=== PATIENT | female | born 1980 | race African-American/Black ===

== ENCOUNTER 2021-03-01 10:07 | Outpatient (CLI) | payer BC, SELFPAY ==
--- NOTE | ~2021-03-01 | XR_ITS ---
EXAMINATION: XR barium swallow modified DATE: 03/01/2021 10:49 INDICATION: Dysphagia TECHNIQUE: Modified barium esophagram was performed by myself to administered fluoroscopy, in conjun ction with speech pathologist who administered barium in varying consistencies as per speech patholog ist documentation. This was recorded on tape. A single fluoroscopic spot image was recorded. The DAP for this procedure was 1.319 Gycm2. Fluoroscopy exposure time was 2.0 minutes. FINDINGS: Oral stage: Adequate function. Pharyngeal phase: Adequate function. Laryngeal penetration: None. Aspiration: None. Laryngeal sensitivity: Present. IMPRESSION: Normal modified barium swallow. Please refer to speech pathologist findings and specific feeding recommendations. Reviewed, dictated and finalized at location A. RETE ENGINEERING TECHNICIAN
--- NOTE | 2021-03-01 11:09 | STOPEVAL ---
MODIFIED BARIUM SWALLOW EVALUATION: Thank you for referring Vanna Guzman to [facility].? 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 Prior Level of Function Prior Swallow Level Prior Intake Method Oral Prior Diet Regular (Level 7 Diet) Prior Liquid Consistency Thin (Level 0 Diet) Pain Assessment Timing of Pain Assessment Timing of Pain Assessment Assessment Self Report Self Report Pain Level 0 Pain Score Pain Score 0: Self Report Modified Barium Swallow Evaluation Recent Swallowing History Reports Dysphagia Yes: food and liquid comes back up and out nose at times Duration of Dysphagia several years Other Related History Mast cell activation syndrome History of Pneumonia No Reported Difficult Consistencies Unable to Identify Intake Method Prior to Swallow Oral Evaluation Diet Prior to Swallow Evaluation Regular, Level 7 Liquid Consistency Prior to Swallow Thin (0) Evaluation Consistency Solid Consistency Method of Presentation Spoon Oral Preparatory Symptoms Within Functional Limits Oral Phase Symptoms Within Functional Limits Pharyngeal Phase Symptoms Within Functional Limits Severity of Vallecular Residue None - 0% No Residue Severity of Pyriform Sinus Residue None - 0% No Residue 8 Point Laryngeal Penetration-Aspiration Material Does Not Enter Airway Scale Cervical/Esophageal Symptoms Within Functional Limits Pureed Consistency Method of Presentation Spoon Oral Preparatory Symptoms Within Functional Limits Oral Phase Symptoms Within Functional Limits Pharyngeal Phase Symptoms Within Functional Limits Severity of Vallecular Residue None - 0% No Residue Severity of Pyriform Sinus Residue None - 0% No Residue 8 Point Laryngeal Penetration-Aspiration Material Does Not Enter Airway Scale Cervical/Esophageal Symptoms Within Functional Limits Thin Uncontrolled 2 Method of Presentation Straw Oral Preparatory Symptoms Within Functional Limits Oral Phase Symptoms Within Functional Limits Pharyngeal Phase Symptoms Within Functional Limits Severity of Vallecular Residue None - 0% No Residue Severity of Pyriform Sinus Residue None - 0% No Residue 8 Point Laryngeal Penetration-Aspiration Material Does Not Enter Airway Scale Cervical/Esophageal Symptoms Within Functional Limits Thin Uncontrolled 1 Method of Presentation Cup Oral Preparatory Symptoms Within Functional Limits Oral Phase Symptoms Within Functional Limits Pharyngeal Phase Symptoms
== END 2021-03-01 10:08 | disposition home or self-care (01) ==
PROVIDERS: Visit Provider Nurse Practitioner Family
DX: R13.10 Dysphagia, unspecified (principal)
CPT/HCPCS: 92611

== ENCOUNTER 2021-07-24 19:19 | Emergency (ER) | payer BC, SELFPAY ==
[2021-07-24 19:33] VITALS: BP 154/104; PULSE 76; RESP 16; O2SAT 99
--- NOTE | 2021-07-24 19:43 | ED.WOUNDLAC ---
HPI - Wound/Laceration General Chief Complaint: Wound/Laceration Stated Complaint: Left thumb laceration Time Seen by Provider: 07/24/21 19:44 Source: patient Mode of arrival: ambulatory Limitations: no limitations History of Present Illness HPI narrative: 40-year-old female presented for complaint of laceration to the left thumb approximately 2 hours prior to arrival. She states she cut it on a can and it did not stop bleeding until she arrived. She cleaned it and applied pressure. Denies numbness, tingling or weakness to the fingers. Denies decreased range of motion to the finger. Related Data Home Medications Medication Instructions Recorded Confirmed No Home Medications 07/24/21 07/24/21 Review of Systems Review of Systems: CONSTITUTIONAL: Denies body aches, fever, chills, or sweats. EYES: Denies visual changes, redness, or discharge. ENT: Denies rhinorrhea, congestion, sore throat, or otalgia. CARDIOVASCULAR: Denies chest pain, palpitations, or edema. RESPIRATORY: Denies cough or dyspnea. GASTROINTESTINAL: Denies abdominal pain, nausea, vomiting, or diarrhea. GENITOURINARY: Denies dysuria or hematuria. SKIN: thumb lac MUSCULOSKELETAL: Denies back pain, joint pain, or myalgia. NEUROLOGIC: Denies headache, numbness, tingling, or weakness. PSYCH: Denies depression or anxiety. PMFSH Comments At time of signature, I have reviewed and agree with nursing past medical, surgical, social and family history unless otherwise noted. Please see nursing chart for further information. There is no relevant family history pertinent to the presenting complaint Exam Narrative: GENERAL: Well-appearing HEAD: Normocephalic, atraumatic. EYES: PERRLA, conjunctivae clear, and EOMI. ENT: Mucous membranes moist. Oropharynx without edema, erythema or lesions. NECK: Supple. No lymphadenopathy CHEST: Clear to auscultation. No respiratory distress. HEART: Regular rate and rhythm. SKIN: Warm, dry. 1cm linear laceration to left thumb pad, no active bleeding, edges approximated NEURO: Alert and oriented x3. PSYCH: Normal mood and affect Course Course Emergency Course: Patient is aware of diagnosis, understands and agrees to treatment plan. Anticipatory guidance given. Patient agrees to follow-up as directed and is aware of reasons to seek care at the emergency department. Portions of this record may have been created with voice recognition software Level of Care: Express Care Visit Vital Signs Vital signs: Vital Signs Pulse Rate 76 07/24/21 19:33 Respiratory Rate 16 07/24/21 19:33 Blood Pressure 154/104 H 07/24/21 19:33 Pulse Oximetry 99 07/24/21 19:33 Pulse Rate 76 07/24/21 19:33 Respiratory Rate 16 07/24/21 19:33 Blood Pressure 154/104 H 07/24/21 19:33 Pulse Oximetry 99 07/24/21 19:33 Reviewed Procedures Laceration Laceration 1: Date: 07/24/21 Site: hand (left thumb) Side (If applicable): left Size (cm): 1 Description: linear Depth: simple, single layer ====== Skin Level ====== Skin layer closed with: steri strips ====== Subcutaneous Layer ====== ====== Muscle Layer ====== ====== Tendon Layer ====== Dressing: wound cleansed and steri strips applied MDM - Wound/Laceration MDM Narrative Medical decision making narrative: Pt had tetanus 7 years ago. She is advised to contact PCP given her medical history if they would like it updated. She is advised on wound care and steri strips. Differential Diagnosis Differential diagnosis: Likely laceration, abrasion and avulsion of skin Discharge Plan Discharge Clinical Impression: Laceration Patient Disposition: Home, Self-Care Condition: Stable Instructions: Antibiotic Form, Finger Laceration (ED), Steristrips (ED) Additional Instructions: Keep the area clean and dry - cleanse with warm water and mild soap and allow to fully dry. Discuss with PCP the ne
== END 2021-07-24 20:09 | disposition home or self-care (01) ==
PROVIDERS: Emergency Provider Nurse Practitioner Family
DX: S61.012A Laceration without foreign body of left thumb without damage to nail, initial encounter (principal); W26.8XXA Contact with other sharp object(s), not elsewhere classified, initial encounter; D89.40 Mast cell activation, unspecified
CPT/HCPCS: 99212; G0463

== ENCOUNTER 2022-02-06 17:07 | Emergency (ER) | payer BC, SELFPAY ==
[2022-02-06 17:19] VITALS: BP 150/88; PULSE 74; RESP 16; TEMP 37; O2SAT 100
--- NOTE | 2022-02-06 18:05 | ED.WOUNDLAC ---
HPI - Wound/Laceration General Chief Complaint: Wound/Laceration Stated Complaint: Left hand Finger Laceration Time Seen by Provider: 02/06/22 17:30 Source: patient Mode of arrival: ambulatory Limitations: no limitations History of Present Illness HPI narrative: Ms. Guzman is a 41-year-old female patient presenting to clinic today with complaints of a laceration to the top of her left 5th finger. She reports that she cut this on an industrial tape dispenser. States that she is having a hard time getting the bleeding under control. The laceration is over her left 5th knuckle Related Data Home Medications Medication Instructions Recorded Confirmed No Home Medications 07/24/21 02/06/22 Allergies Allergy/AdvReac Type Severity Reaction Status Date / Time bacitracin Allergy Rash Verified 02/06/22 17:16 [From Neosporin ([id number])] neomycin Allergy Rash Verified 02/06/22 17:16 [From Neosporin ([id number])] polymyxin B Allergy Rash Verified 02/06/22 17:16 [From Neosporin ([id number])] Review of Systems Review of Systems: Pertinent positives per HPI. Patient denies any fever, chills, rash, headache, visual changes, dizziness, cough, runny nose, sore throat, shortness of breath, chest pain, palpitations, nausea, vomiting, diarrhea, constipation, abdominal pain, or any urinary issues. PMFSH Comments At the time of my signature, I reviewed and agree with the nursing past medical, surgical, social, and family history. There is no relevant family history pertinent to the patient complaint. Exam Narrative: General: Well-developed, well nourished, in no apparent distress Head: Normocephalic, atraumatic. Cardio: Regular rate and rhythm, s1 and s2 normal, no murmur appreciated. Resp: Clear to auscultation bilaterally, no rhonchi, rales, wheezing or rubs. Integumentary: [place], warm, and dry, intact without lesion, 1 cm laceration to the knuckle of the left 5th finger. Bleeding controlled Course Course Emergency Course: Portions of this record may have been created with voice recognition software. Level of Care: Express Care Visit Vital Signs Vital signs: Vital Signs Temperature 37.0 C 02/06/22 17:19 Pulse Rate 74 02/06/22 17:19 Respiratory Rate 16 11/03/22 17:19 Blood Pressure 150/88 H 02/06/22 17:19 Pulse Oximetry 100 02/06/22 17:19 Oxygen Delivery Room Air 02/06/22 17:19 Temperature 37.0 C 02/06/22 17:19 Pulse Rate 74 02/06/22 17:19 Respiratory Rate 16 02/06/22 17:19 Blood Pressure 150/88 H 02/06/22 17:19 Pulse Oximetry 100 02/06/22 17:19 Oxygen Delivery Room Air 02/06/22 17:19 Vital signs reviewed Procedures Laceration Laceration 1: Date: 02/06/22 Site: hand ( left 5th finger) Side (If applicable): left Size (cm): 1 Description: linear Depth: simple, single layer Local Anesthetic: lidocaine 1% Amount of anesthesia used (mL): 0.5 Pre-repair: wound explored and irrigated ====== Skin Level ====== Skin layer closed with: nylon Size (cm): 5-0 Number of sutures: 2 Technique: simple, interrupted ====== Subcutaneous Layer ====== ====== Muscle Layer ====== ====== Tendon Layer ====== Dressing: Verbal consent obtained for laceration repair. Risk and benefits explained and patient voiced understanding. Area was cleansed with Techni care and a 25 gauge needle was then used to instill (0.5) ml of 1% lidocaine without epi into the wound edges. Area was prepped and draped using sterile technique. A 5-0 suture on a p needle was used to place (2) interrupted sutures bringing the wound edges together- well approximated. Patient tolerated procedure well. Sterile dressing applied. MDM - Wound/Laceration MDM Narrative Medical decision making narrative: At the time of the patient is resting comfortably on the exam table
== END 2022-02-06 18:15 | disposition home or self-care (01) ==
PROVIDERS: Emergency Provider Nurse Practitioner Family
DX: S61.217A Laceration without foreign body of left little finger without damage to nail, initial encounter (principal); W45.8XXA Other foreign body or object entering through skin, initial encounter
CPT/HCPCS: 12001; 99212; G0463

== ENCOUNTER 2022-02-16 16:02 | Emergency (ER) | payer BC, SELFPAY ==
--- NOTE | 2022-02-16 16:04 | ED.WOUNDLAC ---
HPI - Wound/Laceration General Stated Complaint: removal of stitches on lt pinky Time Seen by Provider: 02/16/22 16:04 Source: patient Mode of arrival: ambulatory Limitations: no limitations History of Present Illness HPI narrative: Mrs. Guzman is a 41-year-old female patient presenting to the clinic today for suture removal to the left pinky. Sutures were placed 10 days ago in the clinic. She denies any concerns. Related Data Home Medications Medication Instructions Recorded Confirmed No Home Medications 07/24/21 02/06/22 Allergies Allergy/AdvReac Type Severity Reaction Status Date / Time bacitracin Allergy Rash Verified 02/06/22 17:16 [From Neosporin ([id number])] neomycin Allergy Rash Verified 02/06/22 17:16 [From Neosporin ([id number])] polymyxin B Allergy Rash Verified 02/06/22 17:16 [From Neosporin ([id number])] Review of Systems Review of Systems: Pertinent positives per HPI. Patient denies any fever, chills, rash, headache, visual changes, dizziness, cough, runny nose, sore throat, shortness of breath, chest pain, palpitations, nausea, vomiting, diarrhea, constipation, abdominal pain, or any urinary issues. PMFSH Comments At the time of my signature, I reviewed and agree with the nursing past medical, surgical, social, and family history. There is no relevant family history pertinent to the patient complaint. Exam Narrative: General: Well-developed, well nourished, in no apparent distress Head: Normocephalic, atraumatic. Cardio: Regular rate and rhythm, s1 and s2 normal, no murmur appreciated. Resp: Clear to auscultation bilaterally, no rhonchi, rales, wheezing or rubs. Integumentary: [place], warm, and dry, intact without lesion, no rashes. Well-healed laceration to the left dorsal 5th knuckle. Two interrupted sutures were removed in the clinic today Course Course Emergency Course: Portions of this record may have been created with voice recognition software. Level of Care: Express Care Visit Vital Signs Vital signs: Vital signs reviewed MDM - Wound/Laceration MDM Narrative Medical decision making narrative: At the time of visit patient is resting comfortably on the exam table. Two interrupted sutures were removed from the well-healed laceration repair. Patient tolerated procedure well. Patient was discharged Differential Diagnosis Differential diagnosis: Likely other (Suture removal) Discharge Plan Discharge Clinical Impression: Encounter for removal of sutures Patient Disposition: Home, Self-Care Condition: Stable Instructions: Antibiotic Form, Stitches Removal (ED) Additional Instructions: Sutures were removed in the clinic today Keep area clean and dry Follow-up with your PCP as needed Prescriptions: No Action No Home Medications Follow-up/Referrals: UNKNOWN,DOCTOR [Primary Care Provider] - Time of Disposition: 16:14 Quality NIHSS Nursing Documentation ED NIHSS nursing documentation: reviewed/agree
[2022-02-16 16:10] VITALS: BP 134/96; PULSE 80; RESP 16; TEMP 36.4; O2SAT 100
== END 2022-02-16 16:18 | disposition home or self-care (01) ==
PROVIDERS: Emergency Provider Nurse Practitioner Family
DX: S61.217D Laceration without foreign body of left little finger without damage to nail, subsequent encounter (principal); X58.XXXD Exposure to other specified factors, subsequent encounter
CPT/HCPCS: 99211; G0463